=== PATIENT | female | born 1945 | race Caucasian/White ===

== ENCOUNTER 2016-07-02 09:08 | Observation (INO) | payer OTHER ==
[~2016-07-02] VITALS: Ht 160 cm; Wt 74.6 kg
[~2016-07-02 09:08] MED LIST: AMBIEN10 MG PO; ASPIRIN81 M1 PO; BACLOFEN10 MG PO; CALCIUM500 M5 PO; CARDIZEM CD,CA240 MG PO; CELEXA20 MG PO; CELEXA40 MG PO; CIPRO500 MG PO; COLACE100 MG PO; CYCLOBENZAPRINE10 MG PO; Calcium PO; ENDOCET 5-3251 EACH PO; FLAGYL500 MG PO; GLIMEPIRIDE1 MG PO; GLUCOPHAGE500 MG PO; HYDROCHLOROTH12.5 M2 PO; IMODIUM MS REL1 EACH PO; KEFLEX500 MG PO; LEVOTHROID,SY0.15 MG PO; LEVOTHYROXINE150 MCG PO; LISINOPRIL20 MG PO; MELOXICAM15 MG PO; METFORMIN HCL500 MG PO; MORPHINE SULFAT15 M1 PO; MORPHINE SULFAT15 M3 PO; MSIR15 MG PO; NEURONTIN300 MG PO; NORVASC5 MG PO; OMEPRAZOLE20 M3 PO; OMEPRAZOLE40 M1 PO; OXYCODONE-ACET1 EACH PO; STOOL SOFTNER; SUCRALFATE1 GM PO; TRAZODONE HCL100 MG PO; TRAZODONE HCL150 MG PO; TYLENOL WITH C1 EACH PO; Tylenol Regular Stre PO; ZOCOR40 MG PO; ZOFRAN ODT8 MG PO; Zestril,Prinivil PO; Zocor PO; [UNRECOGNIZED DRUG - OTHER] PO
[2016-07-02 09:53] LABS: HEMATOCRIT 34.9 % (36.0-46.0); MCH 30.8 PG (29.0-34.0); MCV 93.6 FL (83-99); MEAN PLAT.VOLUME 10.2 uM^3 (9.5-12.4); PLATELET COUNT 253 K/uL (156-360); RBC DIS.WIDTH-CV 13.1 % (11.8-14.6); RED BLOOD COUNT 3.73 M/uL (3.80-5.20); WHITE BLOOD COUNT 9.4 K/uL (4.1-10.2)
[2016-07-02 10:05] LABS: CHLORIDE 97 mEq/L (99-109); POTASSIUM 4.2 mEq/L (3.7-5.4); SODIUM 132 mEq/L (136-147)
[2016-07-02 10:06] LABS: GLUCOSE 187 mg/dL (70-99)
[2016-07-02 10:08] LABS: ANION GAP 14 MEQ/L (2-14)
[2016-07-02 10:10] LABS: GFR ESTIMATE (CALCULATED) 25 mL/min/
[2016-07-02 10:11] LABS: UREA NITROGEN (BUN) 23 mg/dL (9-23)
[2016-07-02 10:21] LABS: TROP-I INTERPRETATION NEGATIVE; TROPONIN-I < 0.01 ng/mL (0.0-0.30)
[2016-07-02 10:39] LABS: ADD MIUA? YES; BILIRUBIN NEGATIVE; BLOOD NEGATIVE; COLOR YELLOW ((YELLOW)); GLUCOSE (STRIP) NEGATIVE; KETONES NEGATIVE; LEUKOCYTES SMALL; NITRITE NEGATIVE; PH, URINE 5.5 (5-8); PROTEIN (STRIP) NEGATIVE; SPECIFIC GRAVITY 1.017 (1.000-1.030); UROBILINOGEN 0.2 MG/DL (0.2-1.0)
[2016-07-02 10:53] LABS: BACTERIA NONE SEEN; CASTS NONE SEEN /LPF; CRYSTALS NONE SEEN; EPITHELIAL CELLS RARE; MUCUS NONE SEEN; PATHOLOGICAL CAST NONE SEEN; RED BLOOD CELLS 0-5 /HPF (0-5); SMALL ROUND CELL NONE SEEN; UCUL ADDED? NO; WHITE BLOOD CELLS 0-5 /HPF (0-5); YEAST-LIKE CELL NONE SEEN
[2016-07-02 11:29] LABS: BASE EXCESS -0.4 mEq/L (-3 to +3); BICARBONATE 24.8 mEq/L (22-26); METHEMOGLOBIN 1.1 % (0-1.5); PCO2 42 mm Hg (35-45); PO2 114 mm Hg (80-100); pH 7.38 (7.35-7.45)
[2016-07-02 11:30] LABS: COMMENTS - BLOOD GASES A+C+; DEVICE NC; O2 FLOW 2 L/MIN; SITE RR; TOTAL RESP RATE 22 resp/min
[2016-07-02] MEDS ORDERED: ZOCOR40 MG PO (12:10)
[2016-07-02 12:11] LABS: D-DIMER ELISA 0.75 mg/L FEU (< 0.57)
[2016-07-02] MEDS ORDERED: CITALOPRAM HBR20 MG PO (12:12)
[2016-07-02] MEDS ORDERED: OMEPRAZOLE20 MG PO (12:12)
[2016-07-02] MEDS ORDERED: CALCIUM 500 MG1 EACH PO (12:14)
[2016-07-02] MEDS ORDERED: HYDROCHLOROTHIA25 MG PO (12:14)
[2016-07-02] MEDS ORDERED: AMBIEN5 MG PO (12:15)
[2016-07-02] MEDS ORDERED: PRINIVIL20 MG PO (12:15)
[2016-07-02 13:01] LABS: POINT-OF-CARE METER ID UU14100415
[2016-07-02 19:53] VITALS: BP 127/61
[2016-07-03 00:35] VITALS: BP 110/61
[2016-07-03 05:03] VITALS: BP 130/66
[2016-07-03 06:41] LABS: ANION GAP 9 MEQ/L (2-14); CHLORIDE 98 MEQ/L (99-109); GFR ESTIMATE (CALCULATED) 43 mL/min/; GLUCOSE 174 mg/dL (70-99); POTASSIUM 4.3 MEQ/L (3.7-5.4); SAMPLE HEMOLYSIS CHECK 0; SAMPLE ICTERIC CHECK 0; SAMPLE LIPEMIA CHECK 0; SODIUM 134 MEQ/L (136-147); UREA NITROGEN (BUN) 21 mg/dL (9-23)
[2016-07-03 11:36] VITALS: BP 123/65
== END 2016-07-03 14:49 | disposition home or self-care (01) ==
LOC: EME 09:08 → EDOF 16:42 → 5WEST 16:42 → EDOF 16:42 → 5WEST 18:57
PROVIDERS: Emergency Medicine; Internal Medicine
DX: R06.02 Shortness of breath (principal); I42.8 Other cardiomyopathies; I10 Essential (primary) hypertension; I08.0 Rheumatic disorders of both mitral and aortic valves; E78.2 Mixed hyperlipidemia; E11.9 Type 2 diabetes mellitus without complications; E03.9 Hypothyroidism, unspecified; E05.00 Thyrotoxicosis with diffuse goiter without thyrotoxic crisis or storm; I27.2 Other secondary pulmonary hypertension; D68.9 Coagulation defect, unspecified; Z98.1 Arthrodesis status; Z79.891 Long term (current) use of opiate analgesic; Z88.6 Allergy status to analgesic agent; Z88.8 Allergy status to other drugs, medicaments and biological substances; Z91.040 Latex allergy status; Z91.09 Other allergy status, other than to drugs and biological substances
CPT/HCPCS: 36600; 71010; 78582; 80048; 81003; 82803; 82948; 84484; 85027; 85379; 93005; 93306; 99202; 99281; 99285; A9540; A9567; G0378; J1644; J1940; J2930; J7030; J7644

== ENCOUNTER 2016-08-13 16:52 | Emergency (ER) | payer OTHER ==
[~2016-08-13] VITALS: Ht 160 cm; Wt 75.4 kg
[~2016-08-13 16:52] MED LIST changes: +AMBIEN5 MG PO; +CALCIUM 500 MG1 EACH PO; +CITALOPRAM HBR20 MG PO; +HYDROCHLOROTHIA25 MG PO; +OMEPRAZOLE20 MG PO; +PRINIVIL20 MG PO
[2016-08-13] MEDS ORDERED: LIDODERM 5% P1 PATCH TD (20:56)
[2016-08-13 21:21] VITALS: BP 160/95
== END 2016-08-13 21:22 | disposition home or self-care (01) ==
LOC: EME 16:52
DX: M79.605 Pain in left leg (principal); M19.90 Unspecified osteoarthritis, unspecified site; E11.9 Type 2 diabetes mellitus without complications; I10 Essential (primary) hypertension; K21.9 Gastro-esophageal reflux disease without esophagitis; E03.9 Hypothyroidism, unspecified; G89.29 Other chronic pain; Z79.891 Long term (current) use of opiate analgesic
CPT/HCPCS: 73502; 73552; 73564; 99281; 99284; J3010

== ENCOUNTER 2017-01-08 12:48 | Day surgery (SDC) | payer OTHER ==
[~2017-01-08] VITALS: Ht 160 cm; Wt 75.0 kg
[~2017-01-08 12:48] MED LIST changes: +BREO ELLIPTA 21 EACH IH; +LIDODERM 5% P1 PATCH TD; +VENTOLIN HFA18 GM IH
[2017-01-08 13:21] VITALS: BP 148/71
[2017-01-08 14:01] LABS: ANION GAP 9 MEQ/L (2-14); CHLORIDE 96 MEQ/L (99-109); POTASSIUM 4.5 MEQ/L (3.7-5.4); SAMPLE HEMOLYSIS CHECK 0; SAMPLE ICTERIC CHECK 0; SAMPLE LIPEMIA CHECK 0; SODIUM 133 MEQ/L (136-147)
[2017-01-08 14:06] LABS: GFR ESTIMATE (CALCULATED) 52 mL/min/; GLUCOSE 118 mg/dL (70-99); UREA NITROGEN (BUN) 24 mg/dL (9-23)
[2017-01-08 17:28] LABS: POINT-OF-CARE METER ID UU13113675
[2017-01-08 18:15] VITALS: BP 168/78
[2017-01-08 19:10] VITALS: BP 144/65
== END 2017-01-08 19:12 | disposition home or self-care (01) ==
LOC: SDC 12:48
PROVIDERS: Neurological Surgery
DX: T85.113A Breakdown (mechanical) of implanted electronic neurostimulator, generator, initial encounter (principal); M96.1 Postlaminectomy syndrome, not elsewhere classified; G89.29 Other chronic pain; I10 Essential (primary) hypertension; J44.9 Chronic obstructive pulmonary disease, unspecified; K21.9 Gastro-esophageal reflux disease without esophagitis; E03.9 Hypothyroidism, unspecified; E11.9 Type 2 diabetes mellitus without complications; E78.2 Mixed hyperlipidemia
CPT/HCPCS: 72020; 76000; 80048; 82948; C1767; C1778; J0330; J0690; J1170; J1885; J2250; J2405; J2710; J3010; J3370; S0020

== ENCOUNTER 2017-03-11 17:06 | Emergency (ER) | payer OTHER ==
[~2017-03-11] VITALS: Ht 160 cm; Wt 75.4 kg
[2017-03-11 18:53] LABS: HEMATOCRIT 35.5 % (36.0-46.0); MCH 31.5 PG (29.0-34.0); MCHC 33.2 G/DL (30.0-36.0); MCV 94.7 FL (83-99); MEAN PLAT.VOLUME 9.3 uM^3 (9.5-12.4); PLATELET COUNT 229 K/uL (156-360); RBC DIS.WIDTH-CV 14.3 % (11.8-14.6); RBC DIS.WIDTH-SD 49.7 % (39-53); RED BLOOD COUNT 3.75 M/uL (3.80-5.20)
[2017-03-11 19:03] LABS: CHLORIDE 97 mEq/L (99-109); POTASSIUM 4.2 mEq/L (3.7-5.4); SODIUM 133 mEq/L (136-147)
[2017-03-11 19:05] LABS: GLUCOSE 136 mg/dL (70-99)
[2017-03-11 19:06] LABS: ANION GAP 11 MEQ/L (2-14)
[2017-03-11 19:07] LABS: TOTAL BILIRUBIN 0.3 mg/dL (0.0-1.0)
[2017-03-11 19:08] LABS: ALKALINE PHOSPHATASE 120 IU/L (3-129)
[2017-03-11 19:09] LABS: GFR ESTIMATE (CALCULATED) 39 mL/min/
[2017-03-11 19:10] LABS: UREA NITROGEN (BUN) 15 mg/dL (9-23)
[2017-03-11 19:52] LABS: ADD MIUA? YES; BILIRUBIN NEGATIVE; BLOOD NEGATIVE; COLOR YELLOW ((YELLOW)); GLUCOSE (STRIP) NEGATIVE; KETONES NEGATIVE; LEUKOCYTES MODERATE; NITRITE NEGATIVE; PROTEIN (STRIP) NEGATIVE; SPECIFIC GRAVITY 1.013 (1.000-1.030); UROBILINOGEN 0.2 MG/DL (0.2-1.0)
[2017-03-11 19:59] LABS: BACTERIA RARE /HPF; EPITHELIAL CELLS RARE /HPF; HYALINE CASTS 0-5 /LPF; MUCUS TRACE /LPF; RED BLOOD CELLS 0-5 /HPF (0-5); WHITE BLOOD CELLS 15-20 /HPF (0-5)
[2017-03-11] MEDS ORDERED: KEFLEX500 MG PO (21:29)
[2017-03-11] MEDS ORDERED: ZOFRAN4 MG PO (21:29)
[2017-03-11 21:42] VITALS: BP 122/71
== END 2017-03-11 21:44 | disposition home or self-care (01) ==
LOC: EME 17:06
PROVIDERS: Nurse Practitioner Family
DX: R11.2 Nausea with vomiting, unspecified (principal); N39.0 Urinary tract infection, site not specified; E11.9 Type 2 diabetes mellitus without complications; R13.10 Dysphagia, unspecified; E03.9 Hypothyroidism, unspecified; I10 Essential (primary) hypertension; J44.9 Chronic obstructive pulmonary disease, unspecified; K44.9 Diaphragmatic hernia without obstruction or gangrene; I70.0 Atherosclerosis of aorta; Z79.84 Long term (current) use of oral hypoglycemic drugs; Z90.49 Acquired absence of other specified parts of digestive tract; Z90.710 Acquired absence of both cervix and uterus
CPT/HCPCS: 70360; 71020; 80053; 81003; 85027; 93005; 99281; 99285

== ENCOUNTER 2017-03-29 14:24 | Observation (INO) | payer OTHER ==
[~2017-03-29] VITALS: Ht 162.6 cm; Wt 72.1 kg
[~2017-03-29 14:24] MED LIST changes: +ZOFRAN4 MG PO
[2017-03-29 15:48] LABS: ADD MIUA? YES; BILIRUBIN NEGATIVE; BLOOD NEGATIVE; COLOR YELLOW ((YELLOW)); GLUCOSE (STRIP) NEGATIVE; KETONES 5; LEUKOCYTES MODERATE; NITRITE NEGATIVE; PROTEIN (STRIP) NEGATIVE; SPECIFIC GRAVITY 1.014 (1.000-1.030); UROBILINOGEN 0.2 MG/DL (0.2-1.0)
[2017-03-29 15:54] LABS: BACTERIA RARE /HPF; EPITHELIAL CELLS 1+ /HPF; MUCUS TRACE /LPF; RED BLOOD CELLS 0-5 /HPF (0-5); UCUL ADDED? YES
[2017-03-29 16:11] LABS: HEMATOCRIT 37.2 % (36.0-46.0); MCH 31.5 PG (29.0-34.0); MCHC 34.1 G/DL (30.0-36.0); MCV 92.3 FL (83-99); MEAN PLAT.VOLUME 9.7 uM^3 (9.5-12.4); PLATELET COUNT 291 K/uL (156-360); RBC DIS.WIDTH-CV 13.2 % (11.8-14.6); RBC DIS.WIDTH-SD 45.1 % (39-53); RED BLOOD COUNT 4.03 M/uL (3.80-5.20); WHITE BLOOD COUNT 7.2 K/uL (4.1-10.2)
[2017-03-29 16:20] LABS: CHLORIDE 91 mEq/L (99-109); POTASSIUM 3.7 mEq/L (3.7-5.4); SODIUM 129 mEq/L (136-147)
[2017-03-29 16:22] LABS: GLUCOSE 154 mg/dL (70-99)
[2017-03-29 16:23] LABS: ANION GAP 14 MEQ/L (2-14)
[2017-03-29 16:24] LABS: TOTAL BILIRUBIN 0.3 mg/dL (0.0-1.0)
[2017-03-29 16:25] LABS: ALKALINE PHOSPHATASE 103 IU/L (3-129)
[2017-03-29 16:26] LABS: GFR ESTIMATE (CALCULATED) 36 mL/min/
[2017-03-29 16:27] LABS: UREA NITROGEN (BUN) 12 mg/dL (9-23)
[2017-03-29 16:29] LABS: LIPASE 50 U/L (1.0-51.0)
[2017-03-29 17:38] LABS: TROP-I INTERPRETATION NEGATIVE; TROPONIN-I < 0.01 ng/mL (0.0-0.30)
[2017-03-29 22:14] VITALS: BP 155/72
[2017-03-29] MEDS ORDERED: CELEXA40 MG PO (23:04)
[2017-03-29] MEDS ORDERED: KENALOG,ARISTOC80 G1 TP (23:08)
[2017-03-29] MEDS ORDERED: ZYRTEC10 M3 PO (23:09)
[2017-03-29] MEDS ORDERED: BENADRYL ALLERG25 MG PO (23:11)
[2017-03-29 23:56] VITALS: BP 138/63
[2017-03-30 03:25] VITALS: BP 127/59
[2017-03-30 05:28] LABS: EOSINOPHIL (%) 6.5 % (0-5); EOSINOPHIL COUNT 0.4 K/uL (0-0.3); HEMATOCRIT 32.4 % (36.0-46.0); IMMATURE GRANULOCYTE (%) 0.4 % (0.0-0.7); INSTRUMENT ABS NEUTROPHIL CT 3.8 K/uL; LYMPHOCYTE COUNT 1.1 K/uL (1.0-2.8); MCH 30.9 PG (29.0-34.0); MCHC 33.3 G/DL (30.0-36.0); MCV 92.8 FL (83-99); MEAN PLAT.VOLUME 9.3 uM^3 (9.5-12.4); MONOCYTE (%) 4.9 % (3-12); MONOCYTE COUNT 0.3 K/uL (0-0.8); NEUTROPHIL (%) 67.6 % (45-76); NEUTROPHIL COUNT 3.8 K/uL (1.8-6.4); PLATELET COUNT 230 K/uL (156-360); RBC DIS.WIDTH-CV 13.4 % (11.8-14.6); RBC DIS.WIDTH-SD 45.8 % (39-53); RED BLOOD COUNT 3.49 M/uL (3.80-5.20); WHITE BLOOD COUNT 5.7 K/uL (4.1-10.2)
[2017-03-30 05:54] LABS: ANION GAP 8 MEQ/L (2-14); CHLORIDE 97 MEQ/L (99-109); GFR ESTIMATE (CALCULATED) 52 mL/min/; SAMPLE HEMOLYSIS CHECK 0; SAMPLE ICTERIC CHECK 0; SAMPLE LIPEMIA CHECK 0; SODIUM 132 MEQ/L (136-147); UREA NITROGEN (BUN) 8 mg/dL (9-23)
[2017-03-30 05:57] LABS: GLUCOSE 109 mg/dL (70-99)
[2017-03-30 09:31] VITALS: BP 135/76
[2017-03-30 13:16] VITALS: BP 135/76
[2017-03-30] MEDS ORDERED: ZOFRAN4 MG PO (14:32)
== END 2017-03-30 16:13 | disposition home or self-care (01) ==
LOC: EME 14:24 → EDOF 20:27 → ENRESERV 20:31 → 5WEST 22:05 → ENPENDDIS 03-30 → 5WEST 03-30 16:13
PROVIDERS: Hospitalist
DX: R11.2 Nausea with vomiting, unspecified (principal); N17.9 Acute kidney failure, unspecified; N39.0 Urinary tract infection, site not specified; I12.9 Hypertensive chronic kidney disease with stage 1 through stage 4 chronic kidney disease, or unspecified chronic kidney disease; N18.9 Chronic kidney disease, unspecified; E11.22 Type 2 diabetes mellitus with diabetic chronic kidney disease; E87.1 Hypo-osmolality and hyponatremia; E86.0 Dehydration; E03.9 Hypothyroidism, unspecified; E05.00 Thyrotoxicosis with diffuse goiter without thyrotoxic crisis or storm; J44.9 Chronic obstructive pulmonary disease, unspecified; K21.9 Gastro-esophageal reflux disease without esophagitis; E78.00 Pure hypercholesterolemia, unspecified; M41.9 Scoliosis, unspecified; Z79.84 Long term (current) use of oral hypoglycemic drugs; Z98.1 Arthrodesis status; Z96.89 Presence of other specified functional implants; Z90.711 Acquired absence of uterus with remaining cervical stump; Z90.49 Acquired absence of other specified parts of digestive tract; Z88.8 Allergy status to other drugs, medicaments and biological substances; Z91.040 Latex allergy status
CPT/HCPCS: 74177; 80048; 80053; 81003; 82948; 83690; 84484; 85025; 85027; 87086 GA; 93005; 94660; 99281; 99284; G0378; J0696; J1644; J2405; J7030; J7050; S0028

== ENCOUNTER 2017-05-24 17:43 | Inpatient (IN) | payer OTHER ==
[~2017-05-24] VITALS: Ht 160 cm; Wt 77.5 kg
[~2017-05-24 17:43] MED LIST changes: +BENADRYL ALLERG25 MG PO; +KENALOG,ARISTOC80 G1 TP; +ZYRTEC10 M3 PO
[2017-05-24 18:42] LABS: EOSINOPHIL (%) 3.1 % (0-5); EOSINOPHIL COUNT 0.2 K/uL (0-0.3); HEMATOCRIT 36.1 % (36.0-46.0); IMMATURE GRANULOCYTE (%) 0.3 % (0.0-0.7); INSTRUMENT ABS NEUTROPHIL CT 4.6 K/uL; LYMPHOCYTE COUNT 1.2 K/uL (1.0-2.8); MCH 31.1 PG (29.0-34.0); MCHC 32.4 G/DL (30.0-36.0); MONOCYTE (%) 4.3 % (3-12); MONOCYTE COUNT 0.3 K/uL (0-0.8); NEUTROPHIL (%) 72.8 % (45-76); NEUTROPHIL COUNT 4.6 K/uL (1.8-6.4); PLATELET COUNT 268 K/uL (156-360); RBC DIS.WIDTH-CV 14.5 % (11.8-14.6); RBC DIS.WIDTH-SD 51.5 % (39-53); RED BLOOD COUNT 3.76 M/uL (3.80-5.20); WHITE BLOOD COUNT 6.4 K/uL (4.1-10.2)
[2017-05-24 18:51] LABS: CHLORIDE 102 mEq/L (99-109); POTASSIUM 4.7 mEq/L (3.7-5.4); SODIUM 136 mEq/L (136-147)
[2017-05-24 18:52] LABS: MAGNESIUM 2.2 mg/dL (1.3-2.7)
[2017-05-24 18:53] LABS: GLUCOSE 171 mg/dL (70-99)
[2017-05-24 18:54] LABS: ANION GAP 10 MEQ/L (2-14)
[2017-05-24 18:57] LABS: GFR ESTIMATE (CALCULATED) 29 mL/min/
[2017-05-24 18:58] LABS: UREA NITROGEN (BUN) 25 mg/dL (9-23)
[2017-05-24 19:02] LABS: TROP-I INTERPRETATION NEGATIVE; TROPONIN-I < 0.01 ng/mL (0.0-0.30)
[2017-05-24 20:12] LABS: POINT-OF-CARE METER ID UU14100415
[2017-05-24 20:52] LABS: BASE EXCESS 0.8 mEq/L (-3 to +3); COMMENTS - BLOOD GASES C+; FI02 21 %; METHEMOGLOBIN 0.4 % (0-1.5); PCO2 50 mm Hg (35-45); PO2 59 mm Hg (80-100); SITE RR; TOTAL RESP RATE 10 resp/min; pH 7.34 (7.35-7.45)
[2017-05-24 21:18] LABS: ADD MIUA? YES; BILIRUBIN NEGATIVE; BLOOD NEGATIVE; COLOR YELLOW ((YELLOW)); GLUCOSE (STRIP) NEGATIVE; KETONES 5; LEUKOCYTES LARGE; NITRITE NEGATIVE; PROTEIN (STRIP) 30
[2017-05-24 21:29] LABS: BACTERIA RARE /HPF; EPITHELIAL CELLS 1+ /HPF; MUCUS TRACE /LPF; WHITE BLOOD CELLS TNTC /HPF (0-5)
[2017-05-24] MEDS ORDERED: BYSTOLIC20 MG PO (22:29)
[2017-05-24] MEDS ORDERED: NEURONTIN300 MG PO (22:30)
[2017-05-24] MEDS ORDERED: ATARAX,VISTARIL25 MG PO (22:30)
[2017-05-24] MEDS ORDERED: HYDROCHLOROTH12.5 M3 PO (22:30)
[2017-05-25 01:09] VITALS: BP 152/77
[2017-05-25] MEDS ORDERED: CARTIA XT240 MG PO (02:13)
[2017-05-25] MEDS ORDERED: SIMVASTATIN40 MG PO (02:14)
[2017-05-25] MEDS ORDERED: GLIMEPIRIDE1 MG PO (02:16)
[2017-05-25] MEDS ORDERED: NEURONTIN300 MG PO (02:17)
[2017-05-25] MEDS ORDERED: BYSTOLIC20 MG PO (02:38)
[2017-05-25] MEDS ORDERED: LEVOTHYROXINE150 MCG PO (03:35)
[2017-05-25 03:56] VITALS: BP 113/68
[2017-05-25] MEDS ORDERED: OMEPRAZOLE40 M1 PO (03:56)
[2017-05-25] MEDS ORDERED: CELEXA20 MG PO (03:57)
[2017-05-25] MEDS ORDERED: SUCRALFATE1 GM PO (03:59)
[2017-05-25 06:00] LABS: HEMATOCRIT 33.2 % (36.0-46.0); MCH 31.8 PG (29.0-34.0); MCHC 32.8 G/DL (30.0-36.0); MCV 96.8 FL (83-99); MEAN PLAT.VOLUME 9.8 uM^3 (9.5-12.4); PLATELET COUNT 242 K/uL (156-360); RBC DIS.WIDTH-CV 14.7 % (11.8-14.6); RBC DIS.WIDTH-SD 52.3 % (39-53); RED BLOOD COUNT 3.43 M/uL (3.80-5.20); WHITE BLOOD COUNT 5.5 K/uL (4.1-10.2)
[2017-05-25 06:34] LABS: POINT-OF-CARE METER ID UU14314084
[2017-05-25 06:39] LABS: ALKALINE PHOSPHATASE 62 IU/L (3-129); ANION GAP 7 MEQ/L (2-14); CHLORIDE 107 MEQ/L (99-109); GFR ESTIMATE (CALCULATED) 47 mL/min/; POTASSIUM 4.2 MEQ/L (3.7-5.4); SAMPLE HEMOLYSIS CHECK 0; SAMPLE ICTERIC CHECK 0; SAMPLE LIPEMIA CHECK 0; SODIUM 137 MEQ/L (136-147); TOTAL BILIRUBIN 0.3 MG/DL (0.0-1.0); UREA NITROGEN (BUN) 20 mg/dL (9-23)
[2017-05-25 06:42] LABS: GLUCOSE 91 mg/dL (70-99)
[2017-05-25 07:37] VITALS: BP 154/77
[2017-05-25 11:57] VITALS: BP 153/76
[2017-05-25 11:57] LABS: POINT-OF-CARE METER ID UU14208750
[2017-05-25 15:23] VITALS: BP 129/74
[2017-05-25 16:51] LABS: POINT-OF-CARE METER ID UU14208750
[2017-05-25 22:16] LABS: POINT-OF-CARE METER ID UU14208750
[2017-05-26 00:27] VITALS: BP 175/80
[2017-05-26 06:32] LABS: EOSINOPHIL (%) 1.2 % (0-5); EOSINOPHIL COUNT 0.1 K/uL (0-0.3); HEMATOCRIT 36.3 % (36.0-46.0); IMMATURE GRANULOCYTE (%) 0.4 % (0.0-0.7); INSTRUMENT ABS NEUTROPHIL CT 3.5 K/uL; MCH 30.4 PG (29.0-34.0); MEAN PLAT.VOLUME 9.5 uM^3 (9.5-12.4); MONOCYTE (%) 3.7 % (3-12); MONOCYTE COUNT 0.2 K/uL (0-0.8); NEUTROPHIL (%) 73.3 % (45-76); NEUTROPHIL COUNT 3.5 K/uL (1.8-6.4); PLATELET COUNT 247 K/uL (156-360); RBC DIS.WIDTH-CV 14.6 % (11.8-14.6); RBC DIS.WIDTH-SD 51.1 % (39-53); RED BLOOD COUNT 3.82 M/uL (3.80-5.20); WHITE BLOOD COUNT 4.8 K/uL (4.1-10.2)
[2017-05-26 07:22] LABS: ANION GAP 6 MEQ/L (2-14); CHLORIDE 105 MEQ/L (99-109); GFR ESTIMATE (CALCULATED) 52 mL/min/; POTASSIUM 4.1 MEQ/L (3.7-5.4); SAMPLE HEMOLYSIS CHECK 0; SAMPLE ICTERIC CHECK 0; SAMPLE LIPEMIA CHECK 0; SODIUM 136 MEQ/L (136-147); UREA NITROGEN (BUN) 14 mg/dL (9-23)
[2017-05-26 07:24] LABS: GLUCOSE 142 mg/dL (70-99)
[2017-05-26 07:40] VITALS: BP 147/79
[2017-05-26 07:57] LABS: POINT-OF-CARE METER ID UU14208750
[2017-05-26 11:25] LABS: POINT-OF-CARE METER ID UU14208750
[2017-05-26] MEDS ORDERED: KEFLEX500 MG PO (15:01)
[2017-05-26] MEDS ORDERED: ZOFRAN ODT4 MG PO (15:03)
== END 2017-05-26 16:45 | disposition home or self-care (01) | DRG 690 ==
LOC: EME 17:43 → EDOF 21:50 → ENRESERV 21:51 → 2EAST 23:56
PROVIDERS: Hospitalist; Physician Assistant Medical; Student in an Organized Health Care Education/Training Program
DX: N39.0 Urinary tract infection, site not specified (principal); N17.9 Acute kidney failure, unspecified; F05 Delirium due to known physiological condition; N18.9 Chronic kidney disease, unspecified; M41.9 Scoliosis, unspecified; K21.9 Gastro-esophageal reflux disease without esophagitis; E78.5 Hyperlipidemia, unspecified; E11.22 Type 2 diabetes mellitus with diabetic chronic kidney disease; E03.9 Hypothyroidism, unspecified; I12.9 Hypertensive chronic kidney disease with stage 1 through stage 4 chronic kidney disease, or unspecified chronic kidney disease; Z98.1 Arthrodesis status; Z90.710 Acquired absence of both cervix and uterus; Z90.49 Acquired absence of other specified parts of digestive tract; Z87.440 Personal history of urinary (tract) infections; Z79.84 Long term (current) use of oral hypoglycemic drugs; Z91.040 Latex allergy status; Z88.6 Allergy status to analgesic agent; Z79.51 Long term (current) use of inhaled steroids
CPT/HCPCS: 36600; 70450; 71010; 80048; 80053; 81003; 82803; 82948; 83605; 83735; 84484; 85025; 85027; 87040; 87086; 87502; 93005; 94640; 94640 76; 99202; 99281; 99285; J0696; J1650; J1815; J7030

== ENCOUNTER 2017-07-06 20:15 | Observation (INO) | payer OTHER ==
[~2017-07-06] VITALS: Ht 154.9 cm; Wt 69.2 kg
[~2017-07-06 20:15] MED LIST changes: +ATARAX,VISTARIL25 MG PO; +BYSTOLIC20 MG PO; +CARTIA XT240 MG PO; +HYDROCHLOROTH12.5 M3 PO; +SIMVASTATIN40 MG PO; +ZOFRAN ODT4 MG PO
[2017-07-06 20:44] LABS: APPEARANCE CLEAR ((CLEAR)); BILIRUBIN NEGATIVE; BLOOD NEGATIVE; COLOR YELLOW ((YELLOW)); GLUCOSE (STRIP) NEGATIVE; KETONES NEGATIVE; LEUKOCYTES NEGATIVE; NITRITE NEGATIVE; PROTEIN (STRIP) 30; SPECIFIC GRAVITY 1.023 (1.000-1.030); UCUL ADDED? NO; UROBILINOGEN 0.2 MG/DL (0.2-1.0)
[2017-07-06 20:48] LABS: HEMOGLOBIN 11.3 G/DL (11.9-15.5); MCH 31.5 PG (29.0-34.0); MCHC 33.2 G/DL (30.0-36.0); MCV 94.7 FL (83-99); PLATELET COUNT 161 K/uL (156-360); RBC DIS.WIDTH-CV 13.9 % (11.8-14.6); RBC DIS.WIDTH-SD 48.7 % (39-53); RED BLOOD COUNT 3.59 M/uL (3.80-5.20); WHITE BLOOD COUNT 6.8 K/uL (4.1-10.2)
[2017-07-06 20:57] LABS: ALBUMIN 4.2 g/dL (3.2-4.8); CHLORIDE 104 mEq/L (99-109); POTASSIUM 4.1 mEq/L (3.7-5.4); SODIUM 136 mEq/L (136-147)
[2017-07-06 20:59] LABS: GLUCOSE 149 mg/dL (70-99)
[2017-07-06 21:00] LABS: TOTAL PROTEIN 6.5 g/dL (6.4-8.3)
[2017-07-06 21:01] LABS: TOTAL BILIRUBIN 0.3 mg/dL (0.0-1.0)
[2017-07-06 21:03] LABS: ALKALINE PHOSPHATASE 85 IU/L (3-129); CREATININE 1.3 mg/dL (0.6-1.3); GFR ESTIMATE (CALCULATED) 43 mL/min/
[2017-07-06 21:04] LABS: UREA NITROGEN (BUN) 26 mg/dL (9-23)
[2017-07-06 21:05] LABS: AST (GOT) 14 IU/L (2-34)
[2017-07-06 21:06] LABS: ALT (GPT) 13 IU/L (3-49)
[2017-07-06 22:07] LABS: THYROTROPIN (TSH) 0.96 MIU/L (0.4-5.5)
[2017-07-06] MEDS ORDERED: ZESTRIL40 MG PO (23:08)
[2017-07-06] MEDS ORDERED: AMARYL1 MG PO (23:09)
[2017-07-06] MEDS ORDERED: LO-DOSE ASPIRIN81 M1 PO (23:10)
[2017-07-06] MEDS ORDERED: PRILOSEC20 MG PO (23:10)
[2017-07-06] MEDS ORDERED: BENADRYL25 MG PO (23:11)
[2017-07-06] MEDS ORDERED: BYSTOLIC20 MG PO (23:11)
[2017-07-06] MEDS ORDERED: CELEXA40 MG PO (23:13)
[2017-07-07] VITALS (7 sets, daily range): BP systolic 156–199; BP diastolic 74–88
[2017-07-07 05:37] LABS: TROP-I INTERPRETATION NEGATIVE
[2017-07-07 05:40] LABS: HEMATOCRIT 34.6 % (36.0-46.0); HEMOGLOBIN 11.2 G/DL (11.9-15.5); MCH 31.2 PG (29.0-34.0); MCHC 32.4 G/DL (30.0-36.0); MCV 96.4 FL (83-99); PLATELET COUNT 159 K/uL (156-360); RBC DIS.WIDTH-SD 49.5 % (39-53); RED BLOOD COUNT 3.59 M/uL (3.80-5.20)
[2017-07-07 06:06] LABS: HDL CHOLESTEROL 62 MG/DL (Desirable>=50); LDL CHOLESTEROL 71 mg/dL (Desirable<100); NON-HDL CHOLESTEROL 90 mg/dL (Desirable<160); TOTAL CHOLESTEROL 152 mg/dL (Desirable<200); TRIGLYCERIDES 96 MG/DL (Normal: <150)
[2017-07-07 10:27] LABS: IMM.RETIC FRACTION 10.6 % (3-19); RETIC HGB EQUIVALENT 35.6 (28-36); RETICULOCYTE COUNT 1.3 % (0.5-1.8)
[2017-07-07 10:33] LABS: IRON 59 MCG/DL (35-150); TRANSFERRIN (TIBC) 289.1 mg/dL (215-380); TRANSFERRIN SATUR. 20 % (20-55)
[2017-07-07 10:50] LABS: FERRITIN 24 NG/ML (10-291)
[2017-07-07 12:47] LABS: FOLIC ACID (FOLATE) 22.1 NG/ML (5.0-22.0)
[2017-07-07 13:00] LABS: TROP-I INTERPRETATION NEGATIVE; TROPONIN-I 0.22 ng/mL (0.0-0.30)
[2017-07-07 18:31] LABS: TROP-I INTERPRETATION NEGATIVE; TROPONIN-I 0.28 ng/mL (0.0-0.30)
[2017-07-08 00:14] VITALS: BP 181/86
[2017-07-08 04:47] VITALS: BP 168/77
[2017-07-08 05:57] LABS: BASOPHIL (%) 0.5 % (0-1); EOSINOPHIL (%) 1.3 % (0-5); EOSINOPHIL COUNT 0.1 K/uL (0-0.3); HEMATOCRIT 31.9 % (36.0-46.0); HEMOGLOBIN 10.4 G/DL (11.9-15.5); LYMPHOCYTE (%) 29.3 % (15-42); LYMPHOCYTE COUNT 1.1 K/uL (1.0-2.8); MCH 31.2 PG (29.0-34.0); MCHC 32.6 G/DL (30.0-36.0); MCV 95.8 FL (83-99); MONOCYTE (%) 8.9 % (3-12); MONOCYTE COUNT 0.3 K/uL (0-0.8); NEUTROPHIL COUNT 2.2 K/uL (1.8-6.4); PLATELET COUNT 145 K/uL (156-360); RBC DIS.WIDTH-CV 14.4 % (11.8-14.6); RBC DIS.WIDTH-SD 50.3 % (39-53); RED BLOOD COUNT 3.33 M/uL (3.80-5.20); WHITE BLOOD COUNT 3.7 K/uL (4.1-10.2)
[2017-07-08 06:22] LABS: ALBUMIN 3.5 G/DL (3.2-4.8); ALKALINE PHOSPHATASE 67 IU/L (3-129); ALT (GPT) 9 IU/L (3-49); AST (GOT) 11 IU/L (2-34); CHLORIDE 108 MEQ/L (99-109); GFR ESTIMATE (CALCULATED) 58 mL/min/; GLUCOSE 117 mg/dL (70-99); POTASSIUM 3.5 MEQ/L (3.7-5.4); TOTAL BILIRUBIN 0.4 MG/DL (0.0-1.0); TOTAL PROTEIN 5.2 G/DL (6.4-8.3); UREA NITROGEN (BUN) 13 mg/dL (9-23)
[2017-07-08 06:24] LABS: SODIUM 143 MEQ/L (136-147)
[2017-07-08 07:48] VITALS: BP 186/78
[2017-07-08 11:30] VITALS: BP 146/83
[2017-07-08] MEDS ORDERED: CYANOCOBALAM1000 MCG PO (12:29)
[2017-07-08 15:41] VITALS: BP 180/78
[2017-07-09 08:32] LABS: HEMOGLOBIN A1c (GLYCOHEMOGLOB) 6.2 % (Below 5.7)
== END 2017-07-08 18:08 | disposition home health service (06) ==
LOC: EME → EDBD 20:15 → 3EAST 07-07 01:00 → EDOF 07-07 01:00 → ENRESERV 07-07 01:03 → 3EAST 07-07 02:11
PROVIDERS: Emergency Medicine; Hospitalist
DX: R41.82 Altered mental status, unspecified (principal); G93.40 Encephalopathy, unspecified; D64.9 Anemia, unspecified; E03.9 Hypothyroidism, unspecified; E11.22 Type 2 diabetes mellitus with diabetic chronic kidney disease; E78.5 Hyperlipidemia, unspecified; I12.9 Hypertensive chronic kidney disease with stage 1 through stage 4 chronic kidney disease, or unspecified chronic kidney disease; I25.10 Atherosclerotic heart disease of native coronary artery without angina pectoris; J44.9 Chronic obstructive pulmonary disease, unspecified; K21.9 Gastro-esophageal reflux disease without esophagitis; N18.3 Chronic kidney disease, stage 3 (moderate); R11.2 Nausea with vomiting, unspecified; Z91.040 Latex allergy status; E78.00 Pure hypercholesterolemia, unspecified; M41.9 Scoliosis, unspecified; G89.29 Other chronic pain; Z88.6 Allergy status to analgesic agent; Z98.1 Arthrodesis status
CPT/HCPCS: 70450; 71046; 80048; 80053; 80061; 81003; 82607; 82728; 82746; 82948; 83036; 83540; 83605; 84439; 84443; 84466; 84484; 85025; 85027; 85046; 93005; 93880; 94640; 94640 76; 94760; 99281; 99285; G0378; J1644; J7030

== ENCOUNTER 2017-07-10 23:59 | Observation (INO) | payer OTHER ==
[~2017-07-10] VITALS: Ht 167.6 cm; Wt 74.2 kg
[~2017-07-10 23:59] MED LIST changes: +AMARYL1 MG PO; +BENADRYL25 MG PO; +CYANOCOBALAM1000 MCG PO; +LO-DOSE ASPIRIN81 M1 PO; +PRILOSEC20 MG PO; +ZESTRIL40 MG PO
[2017-07-11 00:47] LABS: HEMATOCRIT 31.6 % (36.0-46.0); HEMOGLOBIN 10.3 G/DL (11.9-15.5); MCH 31.2 PG (29.0-34.0); MCHC 32.6 G/DL (30.0-36.0); MCV 95.8 FL (83-99); PLATELET COUNT 154 K/uL (156-360); RBC DIS.WIDTH-CV 14.2 % (11.8-14.6); RBC DIS.WIDTH-SD 49.9 % (39-53); WHITE BLOOD COUNT 5.7 K/uL (4.1-10.2)
[2017-07-11 01:00] LABS: ALBUMIN 3.7 g/dL (3.2-4.8)
[2017-07-11 01:01] LABS: CHLORIDE 106 mEq/L (99-109); SODIUM 138 mEq/L (136-147)
[2017-07-11 01:03] LABS: GLUCOSE 140 mg/dL (70-99); TOTAL PROTEIN 5.7 g/dL (6.4-8.3)
[2017-07-11 01:05] LABS: POTASSIUM 4.3 mEq/L (3.7-5.4); TOTAL BILIRUBIN 0.2 mg/dL (0.0-1.0)
[2017-07-11 01:06] LABS: ALKALINE PHOSPHATASE 78 IU/L (3-129)
[2017-07-11 01:07] LABS: GFR ESTIMATE (CALCULATED) 36 mL/min/
[2017-07-11 01:08] LABS: AST (GOT) 14 IU/L (2-34)
[2017-07-11 01:09] LABS: ALT (GPT) 14 IU/L (3-49)
[2017-07-11 01:10] LABS: TROP-I INTERPRETATION NEGATIVE; TROPONIN-I 0.06 ng/mL (0.0-0.30)
[2017-07-11 01:10] LABS: LIPASE 42 U/L (1.0-51.0)
[2017-07-11 01:24] LABS: CREATININE 1.5 mg/dL (0.6-1.3); UREA NITROGEN (BUN) 21 mg/dL (9-23)
[2017-07-11 02:02] LABS: APPEARANCE CLEAR ((CLEAR)); BILIRUBIN NEGATIVE; BLOOD NEGATIVE; COLOR YELLOW ((YELLOW)); GLUCOSE (STRIP) NEGATIVE; KETONES NEGATIVE; LEUKOCYTES NEGATIVE; NITRITE NEGATIVE; PROTEIN (STRIP) NEGATIVE; SPECIFIC GRAVITY 1.006 (1.000-1.030); UCUL ADDED? NO; UROBILINOGEN 0.2 MG/DL (0.2-1.0)
[2017-07-11] MEDS ORDERED: LISINOPRIL40 MG PO (11:21)
[2017-07-11] MEDS ORDERED: CITALOPRAM HBR40 MG PO (11:21)
[2017-07-11] MEDS ORDERED: ENDOCET 5-3251 EACH PO (11:22)
[2017-07-11] MEDS ORDERED: GABAPENTIN300 MG PO (11:22)
[2017-07-11] MEDS ORDERED: GLIMEPIRIDE1 MG PO (11:23)
[2017-07-11] MEDS ORDERED: OMEPRAZOLE20 MG PO (11:25)
[2017-07-11] MEDS ORDERED: SIMVASTATIN40 MG PO (11:25)
[2017-07-11] MEDS ORDERED: DILTIAZEM 24HR240 MG PO (11:25)
[2017-07-11 11:46] VITALS: BP 184/86
[2017-07-11 16:09] VITALS: BP 202/95
[2017-07-11 18:15] VITALS: BP 181/84
[2017-07-11 20:11] VITALS: BP 175/82
[2017-07-12] VITALS (8 sets, daily range): BP systolic 128–181; BP diastolic 75–91
[2017-07-13 03:49] VITALS: BP 164/75
[2017-07-13 06:17] LABS: HEMATOCRIT 34.5 % (36.0-46.0); HEMOGLOBIN 11.3 G/DL (11.9-15.5); MCH 30.3 PG (29.0-34.0); MCHC 32.8 G/DL (30.0-36.0); MCV 92.5 FL (83-99); PLATELET COUNT 174 K/uL (156-360); RBC DIS.WIDTH-SD 47.5 % (39-53); RED BLOOD COUNT 3.73 M/uL (3.80-5.20); WHITE BLOOD COUNT 4.8 K/uL (4.1-10.2)
[2017-07-13 06:57] LABS: CHLORIDE 102 MEQ/L (99-109); GLUCOSE 128 mg/dL (70-99); SODIUM 139 MEQ/L (136-147); UREA NITROGEN (BUN) 9 mg/dL (9-23)
[2017-07-13 06:58] LABS: CREATININE 0.9 MG/DL (0.6-1.3); GFR ESTIMATE (CALCULATED) > 59 mL/min/; POTASSIUM 3.1 MEQ/L (3.7-5.4)
[2017-07-13 07:18] VITALS: BP 186/92
[2017-07-13 09:00] VITALS: BP 142/74
== END 2017-07-13 12:02 | disposition home or self-care (01) ==
LOC: EME → EDBD 23:59 → EME 23:59 → EDOF 07-11 04:54 → 5WEST 07-11 04:54 → EDOF 07-11 04:54 → ENRESERV 07-11 04:56 → EDOF 07-11 06:01 → ENRESERV 07-11 10:54 → 5WEST 07-11 11:25
PROVIDERS: Emergency Medicine; Family Medicine
DX: G93.40 Encephalopathy, unspecified (principal); N17.9 Acute kidney failure, unspecified; E87.6 Hypokalemia; D64.9 Anemia, unspecified; E03.9 Hypothyroidism, unspecified; I12.9 Hypertensive chronic kidney disease with stage 1 through stage 4 chronic kidney disease, or unspecified chronic kidney disease; N18.9 Chronic kidney disease, unspecified; E78.5 Hyperlipidemia, unspecified; G89.29 Other chronic pain; M41.9 Scoliosis, unspecified; M48.061 Spinal stenosis, lumbar region without neurogenic claudication; M54.9 Dorsalgia, unspecified; Z96.89 Presence of other specified functional implants; Z98.1 Arthrodesis status; S00.83XA Contusion of other part of head, initial encounter; I34.0 Nonrheumatic mitral (valve) insufficiency; I27.20 Pulmonary hypertension, unspecified; Z79.891 Long term (current) use of opiate analgesic; Z82.49 Family history of ischemic heart disease and other diseases of the circulatory system; Z90.49 Acquired absence of other specified parts of digestive tract; Z90.710 Acquired absence of both cervix and uterus; Z88.8 Allergy status to other drugs, medicaments and biological substances; Z91.040 Latex allergy status; Z91.09 Other allergy status, other than to drugs and biological substances; Z88.6 Allergy status to analgesic agent; I70.0 Atherosclerosis of aorta
CPT/HCPCS: 70450; 71045; 72080; 80048; 80053; 81003; 82140; 83605; 83690; 84484; 85027; 93005; 95819; 99281; 99285; G0378; G8978 GP CI; G8979 GP CH; G8980 GP CI; G8987 GO CI; G8988 GO CH; G8989 GO CI; J0360; J1644; J7030

== ENCOUNTER 2017-08-01 16:27 | Emergency (ER) | payer OTHER ==
[~2017-08-01] VITALS: Ht 160 cm; Wt 69.0 kg
[~2017-08-01 16:27] MED LIST changes: +CITALOPRAM HBR40 MG PO; +DILTIAZEM 24HR240 MG PO; +GABAPENTIN300 MG PO; +LISINOPRIL40 MG PO
[2017-08-01 17:05] LABS: HEMATOCRIT 37.2 % (36.0-46.0); HEMOGLOBIN 12.4 G/DL (11.9-15.5); MCH 31.8 PG (29.0-34.0); MCHC 33.3 G/DL (30.0-36.0); MCV 95.4 FL (83-99); PLATELET COUNT 182 K/uL (156-360); RBC DIS.WIDTH-CV 14.4 % (11.8-14.6); WHITE BLOOD COUNT 5.2 K/uL (4.1-10.2)
[2017-08-01 17:17] LABS: CHLORIDE 105 mEq/L (99-109); POTASSIUM 3.9 mEq/L (3.7-5.4); SODIUM 139 mEq/L (136-147)
[2017-08-01 17:19] LABS: GLUCOSE 76 mg/dL (70-99)
[2017-08-01 17:23] LABS: CREATININE 1.1 mg/dL (0.6-1.3); GFR ESTIMATE (CALCULATED) 52 mL/min/; UREA NITROGEN (BUN) 13 mg/dL (9-23)
[2017-08-01 19:40] LABS: APPEARANCE SL.HAZY ((CLEAR)); BILIRUBIN NEGATIVE; BLOOD NEGATIVE; COLOR YELLOW ((YELLOW)); GLUCOSE (STRIP) NEGATIVE; KETONES NEGATIVE; LEUKOCYTES LARGE; NITRITE NEGATIVE; PROTEIN (STRIP) NEGATIVE; SPECIFIC GRAVITY 1.013 (1.000-1.030); UROBILINOGEN 0.2 MG/DL (0.2-1.0)
[2017-08-01 20:00] LABS: BACTERIA RARE /HPF; EPITHELIAL CELLS 1+ /HPF; MUCUS TRACE /LPF; RED BLOOD CELLS 0-5 /HPF (0-5); UCUL ADDED? YES
[2017-08-01] MEDS ORDERED: KEFLEX500 MG PO (22:53)
[2017-08-01] MEDS ORDERED: ZOFRAN4 MG PO (23:07)
[2017-08-01 23:25] VITALS: BP 147/70
== END 2017-08-01 23:27 | disposition home or self-care (01) ==
LOC: EME 16:27
PROVIDERS: Physician Assistant
DX: K29.70 Gastritis, unspecified, without bleeding (principal); R41.89 Other symptoms and signs involving cognitive functions and awareness; I10 Essential (primary) hypertension; Z91.81 History of falling; R82.99 Other abnormal findings in urine; K57.30 Diverticulosis of large intestine without perforation or abscess without bleeding; K44.9 Diaphragmatic hernia without obstruction or gangrene; E03.9 Hypothyroidism, unspecified; J45.909 Unspecified asthma, uncomplicated; E11.9 Type 2 diabetes mellitus without complications; Z79.84 Long term (current) use of oral hypoglycemic drugs; Z79.82 Long term (current) use of aspirin; Z90.49 Acquired absence of other specified parts of digestive tract; Z90.710 Acquired absence of both cervix and uterus; Z81.8 Family history of other mental and behavioral disorders
CPT/HCPCS: 70450; 71046; 74177; 80048; 81003; 83605; 85027; 87040; 87086 GA; 93005; 99281; 99285; J2405; J3010; J7030

== ENCOUNTER 2017-11-02 10:15 | Observation (INO) | payer OTHER ==
[~2017-11-02] VITALS: Ht 160 cm; Wt 74.8 kg
[2017-11-02 12:00] LABS: HEMATOCRIT 32.9 % (36.0-46.0); HEMOGLOBIN 10.8 G/DL (11.9-15.5); MCH 31.2 PG (29.0-34.0); MCHC 32.8 G/DL (30.0-36.0); MCV 95.1 FL (83-99); PLATELET COUNT 148 K/uL (156-360); RBC DIS.WIDTH-CV 15.5 % (11.8-14.6); RBC DIS.WIDTH-SD 54.2 % (39-53); RED BLOOD COUNT 3.46 M/uL (3.80-5.20); WHITE BLOOD COUNT 7.2 K/uL (4.1-10.2)
[2017-11-02 12:08] LABS: CHLORIDE 103 mEq/L (99-109); POTASSIUM 5.3 mEq/L (3.7-5.4); SODIUM 137 mEq/L (136-147)
[2017-11-02 12:11] LABS: GLUCOSE 137 mg/dL (70-99); TOTAL PROTEIN 6.6 g/dL (6.4-8.3)
[2017-11-02 12:13] LABS: TOTAL BILIRUBIN 0.6 mg/dL (0.0-1.0)
[2017-11-02 12:14] LABS: ALKALINE PHOSPHATASE 104 IU/L (3-129); CREATININE 1.6 mg/dL (0.6-1.3); GFR ESTIMATE (CALCULATED) 33 mL/min/
[2017-11-02 12:15] LABS: UREA NITROGEN (BUN) 43 mg/dL (9-23)
[2017-11-02 12:16] LABS: AST (GOT) 14 IU/L (2-34)
[2017-11-02 12:17] LABS: ALT (GPT) 12 IU/L (3-49)
[2017-11-02 12:18] LABS: LIPASE 54 U/L (1.0-51.0)
[2017-11-02 12:20] LABS: TROP-I INTERPRETATION NEGATIVE; TROPONIN-I 0.01 ng/mL (0.0-0.30)
[2017-11-02 13:56] LABS: APPEARANCE CLEAR ((CLEAR)); BILIRUBIN NEGATIVE; BLOOD NEGATIVE; COLOR YELLOW ((YELLOW)); GLUCOSE (STRIP) NEGATIVE; KETONES NEGATIVE; LEUKOCYTES NEGATIVE; NITRITE NEGATIVE; PROTEIN (STRIP) NEGATIVE; SPECIFIC GRAVITY 1.014 (1.000-1.030); UCUL ADDED? NO; UROBILINOGEN 0.2 MG/DL (0.2-1.0)
[2017-11-02] MEDS ORDERED: CALCIUM 500 +1 EAC2 PO (15:11)
[2017-11-02 17:00] VITALS: BP 182/80
[2017-11-02 17:16] VITALS: BP 191/79
[2017-11-02 17:50] LABS: BENZODIAZEPINES, URINE SCREEN Negative (200 ng/mL)
[2017-11-02 19:20] VITALS: BP 165/78
[2017-11-03 00:12] VITALS: BP 187/67
[2017-11-03] MEDS ORDERED: APRESOLINE25 MG PO (03:10)
[2017-11-03 04:47] VITALS: BP 149/66
[2017-11-03 05:28] LABS: HEMATOCRIT 32.3 % (36.0-46.0); HEMOGLOBIN 10.3 G/DL (11.9-15.5); MCH 30.1 PG (29.0-34.0); MCHC 31.9 G/DL (30.0-36.0); MCV 94.4 FL (83-99); PLATELET COUNT 152 K/uL (156-360); RBC DIS.WIDTH-CV 15.6 % (11.8-14.6); RBC DIS.WIDTH-SD 54.3 % (39-53); RED BLOOD COUNT 3.42 M/uL (3.80-5.20); WHITE BLOOD COUNT 5.9 K/uL (4.1-10.2)
[2017-11-03 05:58] LABS: CHLORIDE 107 MEQ/L (99-109); GFR ESTIMATE (CALCULATED) 58 mL/min/; GLUCOSE 137 mg/dL (70-99); POTASSIUM 4.6 MEQ/L (3.7-5.4); SODIUM 137 MEQ/L (136-147); UREA NITROGEN (BUN) 29 mg/dL (9-23)
[2017-11-03 07:08] VITALS: BP 123/59
[2017-11-03 11:33] VITALS: BP 111/58
[2017-11-03] MEDS ORDERED: GABAPENTIN300 MG PO (16:22)
[2017-11-03] MEDS ORDERED: GABAPENTIN100 MG PO (16:22)
[2017-11-03] MEDS ORDERED: TRAMADOL HCL50 MG PO (16:34)
== END 2017-11-03 17:20 | disposition home health service (06) ==
LOC: EME 10:15 → EDOF 15:42 → ENRESERV 15:48 → 4SOUTH 16:51
PROVIDERS: Family Medicine; Physician Assistant
DX: R41.82 Altered mental status, unspecified (principal); N17.9 Acute kidney failure, unspecified; T40.2X5A Adverse effect of other opioids, initial encounter; E86.0 Dehydration; I12.9 Hypertensive chronic kidney disease with stage 1 through stage 4 chronic kidney disease, or unspecified chronic kidney disease; N18.9 Chronic kidney disease, unspecified; E03.9 Hypothyroidism, unspecified; E11.22 Type 2 diabetes mellitus with diabetic chronic kidney disease; D64.9 Anemia, unspecified; L27.0 Generalized skin eruption due to drugs and medicaments taken internally; G89.29 Other chronic pain; E78.5 Hyperlipidemia, unspecified; Z90.49 Acquired absence of other specified parts of digestive tract; Z90.710 Acquired absence of both cervix and uterus; Z98.1 Arthrodesis status; Z88.2 Allergy status to sulfonamides; Z88.5 Allergy status to narcotic agent; Z88.6 Allergy status to analgesic agent; Z91.040 Latex allergy status
CPT/HCPCS: 70450; 71046; 72131; 74176; 80048; 80053; 80306 90; 81003; 82948; 83690; 84484; 85027; 93005; 94640; 94640 76; 99281; 99285; G0378; G8978 GP CJ; G8979 GP CI; G8987 GO CI; G8988 GO CH; J0360; J1644; J3010; J7030

== ENCOUNTER 2017-12-02 10:49 | Observation (INO) | payer OTHER ==
[~2017-12-02] VITALS: Ht 160 cm; Wt 80.5 kg
[~2017-12-02 10:49] MED LIST changes: +APRESOLINE25 MG PO; +CALCIUM 500 +1 EAC2 PO; +GABAPENTIN100 MG PO; +TRAMADOL HCL50 MG PO
[2017-12-02 12:06] LABS: APPEARANCE CLEAR ((CLEAR)); BILIRUBIN NEGATIVE; BLOOD NEGATIVE; COLOR YELLOW ((YELLOW)); GLUCOSE (STRIP) NEGATIVE; KETONES NEGATIVE; LEUKOCYTES NEGATIVE; NITRITE NEGATIVE; PROTEIN (STRIP) NEGATIVE; UCUL ADDED? NO; UROBILINOGEN 0.2 MG/DL (0.2-1.0)
[2017-12-02 12:34] LABS: CHLORIDE 106 mEq/L (99-109); POTASSIUM 5.6 mEq/L (3.7-5.4); SODIUM 137 mEq/L (136-147)
[2017-12-02 12:36] LABS: GLUCOSE 104 mg/dL (70-99); HEMATOCRIT 37.8 % (36.0-46.0); MCHC 32.5 G/DL (30.0-36.0); MCV 95.2 FL (83-99); PLATELET COUNT 138 K/uL (156-360); RBC DIS.WIDTH-CV 14.5 % (11.8-14.6); RBC DIS.WIDTH-SD 50.7 % (39-53); RED BLOOD COUNT 3.97 M/uL (3.80-5.20); WHITE BLOOD COUNT 7.3 K/uL (4.1-10.2)
[2017-12-02 12:40] LABS: CREATININE 1.5 mg/dL (0.6-1.3); GFR ESTIMATE (CALCULATED) 36 mL/min/
[2017-12-02 12:41] LABS: UREA NITROGEN (BUN) 32 mg/dL (9-23)
[2017-12-02 12:45] LABS: TROP-I INTERPRETATION NEGATIVE; TROPONIN-I 0.02 ng/mL (0.0-0.30)
[2017-12-02 12:51] LABS: HEMOGLOBIN 12.3 G/DL (11.9-15.5)
[2017-12-02] MEDS ORDERED: NEURONTIN300 MG PO (16:27)
[2017-12-02] MEDS ORDERED: LISINOPRIL40 MG PO (16:34)
[2017-12-02] MEDS ORDERED: SIMVASTATIN40 MG PO (16:35)
[2017-12-02] MEDS ORDERED: ONDANSETRON HCL4 MG PO (16:37)
[2017-12-02] MEDS ORDERED: VITAMIN B-121000 MC1 SL (16:37)
[2017-12-02 17:22] VITALS: BP 156/94
[2017-12-02 20:00] VITALS: BP 110/55
[2017-12-02 23:17] VITALS: BP 146/67
[2017-12-03 04:21] VITALS: BP 163/79
[2017-12-03 05:40] LABS: HEMATOCRIT 34.1 % (36.0-46.0); HEMOGLOBIN 10.9 G/DL (11.9-15.5); MCV 96.9 FL (83-99); PLATELET COUNT 125 K/uL (156-360); RBC DIS.WIDTH-CV 14.6 % (11.8-14.6); RBC DIS.WIDTH-SD 51.6 % (39-53); RED BLOOD COUNT 3.52 M/uL (3.80-5.20)
[2017-12-03 05:55] LABS: CHLORIDE 105 MEQ/L (99-109); CREATININE 1.1 MG/DL (0.6-1.3); GFR ESTIMATE (CALCULATED) 52 mL/min/; GLUCOSE 95 mg/dL (70-99); SODIUM 139 MEQ/L (136-147); UREA NITROGEN (BUN) 24 mg/dL (9-23)
[2017-12-03 06:07] LABS: POTASSIUM 4.4 MEQ/L (3.7-5.4)
[2017-12-03 08:50] VITALS: BP 149/73
[2017-12-03] MEDS ORDERED: CIPROFLOXACIN H10 ML BOTH EYES ×2 (11:16→11:36)
[2017-12-03 11:25] VITALS: BP 184/84
[2017-12-03 14:42] VITALS: BP 168/86
[2017-12-03 19:51] VITALS: BP 172/100
[2017-12-03 23:56] VITALS: BP 168/94
[2017-12-04 03:59] VITALS: BP 134/83
[2017-12-04 05:24] LABS: BASOPHIL (%) 0.4 % (0-1); EOSINOPHIL (%) 0.8 % (0-5); HEMATOCRIT 35.5 % (36.0-46.0); HEMOGLOBIN 11.4 G/DL (11.9-15.5); IMMATURE GRANULOCYTE (%) 0.2 % (0.0-0.7); LYMPHOCYTE (%) 21.6 % (15-42); LYMPHOCYTE COUNT 1.1 K/uL (1.0-2.8); MCH 30.6 PG (29.0-34.0); MCHC 32.1 G/DL (30.0-36.0); MCV 95.4 FL (83-99); MONOCYTE (%) 4.8 % (3-12); MONOCYTE COUNT 0.2 K/uL (0-0.8); NEUTROPHIL (%) 72.2 % (45-76); NEUTROPHIL COUNT 3.6 K/uL (1.8-6.4); PLATELET COUNT 128 K/uL (156-360); RBC DIS.WIDTH-CV 14.3 % (11.8-14.6); RBC DIS.WIDTH-SD 49.8 % (39-53); RED BLOOD COUNT 3.72 M/uL (3.80-5.20)
[2017-12-04 05:53] LABS: CHLORIDE 105 MEQ/L (99-109); CREATININE 0.9 MG/DL (0.6-1.3); GFR ESTIMATE (CALCULATED) > 59 mL/min/; GLUCOSE 118 mg/dL (70-99); SODIUM 140 MEQ/L (136-147); UREA NITROGEN (BUN) 12 mg/dL (9-23)
[2017-12-04 07:31] VITALS: BP 180/86
[2017-12-04 11:50] VITALS: BP 149/74
[2017-12-04] MEDS ORDERED: MIRALAX17 GM PO (13:30)
== END 2017-12-04 15:42 | disposition home or self-care (01) ==
LOC: EME 10:49 → 4SOUTH 15:52 → EDOF 15:52 → ENRESERV 15:55 → 4SOUTH 17:02
PROVIDERS: Emergency Medicine; Internal Medicine
DX: G92 Toxic encephalopathy (principal); T40.2X5A Adverse effect of other opioids, initial encounter; R09.02 Hypoxemia; E87.5 Hyperkalemia; N17.9 Acute kidney failure, unspecified; R60.0 Localized edema; G89.29 Other chronic pain; F11.20 Opioid dependence, uncomplicated; E78.5 Hyperlipidemia, unspecified; E03.9 Hypothyroidism, unspecified; R79.89 Other specified abnormal findings of blood chemistry; Z79.82 Long term (current) use of aspirin; Z79.84 Long term (current) use of oral hypoglycemic drugs; R26.89 Other abnormalities of gait and mobility; G47.30 Sleep apnea, unspecified; K59.00 Constipation, unspecified; E86.0 Dehydration; H10.9 Unspecified conjunctivitis; I12.9 Hypertensive chronic kidney disease with stage 1 through stage 4 chronic kidney disease, or unspecified chronic kidney disease; N18.3 Chronic kidney disease, stage 3 (moderate); M41.9 Scoliosis, unspecified; J45.909 Unspecified asthma, uncomplicated; E11.9 Type 2 diabetes mellitus without complications; Z90.710 Acquired absence of both cervix and uterus; Z90.49 Acquired absence of other specified parts of digestive tract; Z98.1 Arthrodesis status; Z88.2 Allergy status to sulfonamides; Z88.5 Allergy status to narcotic agent; Z88.8 Allergy status to other drugs, medicaments and biological substances; Z88.6 Allergy status to analgesic agent; Z91.040 Latex allergy status
CPT/HCPCS: 70450; 71045; 74018; 80048; 81003; 82948; 83605; 84484; 85025; 85027; 87040; 93005; 93970; 94640; 94799; 99281; 99285; G0378; J1650; J2405; J7030; J7040